=== PATIENT | male | born 1970 ===

== ENCOUNTER 2023-07-07 14:21 | Outpatient (AMB) | payer OTHER, SELFPAY ==
--- NOTE | 2023-07-07 14:21 | MHC.OFFWIV ---
Intake Vital Signs 07/07/23 14:22 Height 5 ft 6 in Weight 298 lb 4 oz BMI 48.1 BP 104/70 Blood Pressure Location Rt brachial Position Sitting Pulse 91 Pulse Source Pulse Oximeter Temp 96.3 F L Temp Source Temporal Artery Scan Pulse Oximetry (%) 96 Oxygen Delivery Method Room Air Intake Visit Reasons: [employer]/left eye irritation(lobby) Intake Note: Pt is here c/o left eye discomfort. Pt states he has a bump on his left eye. Patient Tobacco Use Status: Never used Tobacco Allergies No Known Allergies Allergy (Verified 07/07/23 14:27) Do you need a note to return to daycare/school/sports/work: No HPI HPI Comments History of Present Illness Details 53 yo M that present for L eye lump. Started w/ irritation to the area. Thought he scratched his eye or it was a stye. Been using warm compression. Went away initially then came back as a firm bump. Denies, fever, discharge, or vision changes. PFSH Social History Patient Tobacco Use Status: Never used Tobacco Review of Systems Eyes Details: Bump on eye Physical Exam Vital Signs: Last Vital Signs Temp 96.3 F L 07/07/23 14:22 Pulse 91 07/07/23 14:22 BP 104/70 07/07/23 14:22 Pulse Ox 96 07/07/23 14:22 Oxygen Delivery Method Room Air 07/07/23 14:22 BMI result Body Mass Index 48.1 Const General: healthy appearing, comfortable, no acute distress and alert Orientation/consciousness: patient oriented x3 Limitations: no limitations HEENT Other: Small firm bump on the lower eyelid. VA grossly intact. No conjunctival injection. Head: Yes normal to inspection Ears: hearing grossly normal bilaterally Resp Effort & Inspection: normal respiratory effort and able to speak in complete sentences Cardio Rate: regular rate Skin General skin exam: no rashes or lesions noted Neuro General: patient oriented x3 Extrem General: Yes normal to inspection Assessment & Plan Assessment & Plan (1) Chalazion: Code(s): H00.19 - Chalazion unspecified eye, unspecified eyelid Qualifiers: Eyelid: lower Laterality: left Qualified Code(s): H00.15 - Chalazion left lower eyelid Plan: Recommended continued warm compresses Q15 m. Given patient has trial compresses and tea bags will trial erythromycin. If no improvement recommend f/u with optho. Discharge instructions, follow up and treatment are discussed with patient in my usual fashion. Alternatives in treatment are also discussed. The patient will return for worsening symptoms or as needed. Advised that any labs/imaging ordered will be followed up on and contact made if further treatment needed. Counseled that patient's condition may require further evaluation and/or treatment. Symptoms of concern for worsening disorder discussed in detail in my customary manner. Patient does verbalize understanding of the plan, there are no apparent barriers to communication. The patient is given the opportunity to ask questions and have them answered to his/her satisfaction Medications: New erythromycin 1 appl ophthalmic (eye) DAILY 3.5 grams 0RF Coding Level of Care Code New Pt Level 4 (54834) Diagnoses Chalazion of left lower eyelid H00.15 Eyelid: lower Laterality: left
[2023-07-07 14:22] VITALS: BP 104/70; PULSE 91; TEMP 35.7; O2SAT 96; BMI 48.1
== END 2023-07-07 14:49 | disposition home or self-care (01) ==
PROVIDERS: Visit Provider Physician Assistant
DX: H00.15 Chalazion left lower eyelid (principal)
CPT/HCPCS: 99204